=== PATIENT | female | born 1995 | race Caucasian/White ===

== ENCOUNTER 2016-11-27 17:07 | Emergency (ER) | payer MEDICARE, OTHER ==
--- NOTE | 2016-11-27 17:48 | ED Physician Documentation ---
Chest Pain - HISTORIAN Historian: patient - HPI Stated Complaint: chest pain Chief Complaint: Chest Pain Onset: hours (6-8 hours ago) Timing: sudden onset, gone now Duration: other (intermittent) Last known Well Date: 11/27/16 Last Known Well Time: 13:00 Last known Well Code/Unknown Code: Known Context: rest Severity: moderate Quality: aching, sharp Chest Pain Radiation: no radiation, other (substernal) Chest Pain Signs/Symptoms: denies: nausea, vomiting Worsened By: nothing Relieved By: nothing Further Comments: yes (Patient states that she had a single episode of anterior bilateral chest pain, she feels related to anxiety. Lasted for about 1 hour. No precipitating or modifying factors noted. bilateral anterior chest area.) - ROS CONST: none. denies: fever, chills GI/: none SKIN/ENDO: none - PAST HX SC risk factors: no pertinent history, other (no surgery) Lung disease: none Surgeries/Procedures: none Allergies/Adverse Reactions: Allergies Allergy/AdvReac Type Severity Reaction Status Date / Time No Known Allergies Allergy Verified 11/27/16 17:19 Home Medications: Ambulatory Orders Medication Instructions Recorded NK [NK] 11/27/16 - SOCIAL HX Smoking History: less than 1 pack/day (1/2 ppd) Alcohol Use: none Drug Use: none - FAMILY HX Family HX: none - VITAL SIGNS Vital Signs: Vital Signs Temp Pulse Resp BP Pulse Ox 117 H 16 138/97 100 11/27/16 17:15 11/27/16 17:15 11/27/16 17:15 11/27/16 17:15 - REVIEWED ASSESSMENTS Nursing Assessment Reviewed: Yes Vitals Reviewed: Yes Progress - Progress Progress: Patient was advised of elevated D dimer and of leukocytosis. Was advised on three different times that there is a possibility of a PE which if left untreated could kill her. Patient thinks chest pain was caused by anxiety and wished to leave AMA. Patient's straddle truck driver was in the room when I explained to her about the potential seriousness of having a PE. Patient continued to refuse further treatment and desired to leave AMA. Papers where explained to her and she signed them. Patient was advised to return if she had any further problems or symptoms.Encouraged to follow-up with her primary care provider. Chest Pain Physical Exam - EXAM General Appearance: no acute distress, alert EENT: eye inspection normal, ENT inspection normal, pharynx normal, no signs of dehydration Neck: nml inspection, no carotid bruit. No: lymphadenopathy, subcutaneous emphysema Respiratory: no resp. distress, chest non-tender, nml breath sounds, resp.distress CVS: reg. rate & rhythm, no murmur, no gallop, no friction rub, pulses full Abdomen: soft, no organomegaly, normal bowel sounds, no abdominal bruit, no distension, non-tender Skin: warm/dry, normal color Extremities: non-tender, normal range of motion, no evidence of injury Neuro: oriented X3, CN's nml as tested, motor nml, sensation nml, mood/affect nml, cognition normal Discharge Clincal Impression: Chest pain Qualifiers: Chest pain type: precordial pain Qualified Code(s): R07.2 - Precordial pain Referrals: Primary Doctor,No [Primary Care Provider] - 2 Days Additional Instructions: Chest pain may be related to a blood clot. It this is left untreated it could kill you. If you develop further hest pain, shortness of breath, cough of bloody phlegm return to the ED. Home Medications: Ambulatory Orders NK [NK] 11/27/16 Condition: Stable Disposition: 07 AGAINST MEDICAL ADVICE Decision to Admit: NO Date of Decison to Admit: 11/27/16 Decision Time: 18:59
[2016-11-27 18:09] LABS: BASOPHILS % 0.4 (0.0-1.5); EOSINOPHILS % 4.6 % (0.0-6.8); LYMPHOCYTES # 4.4 # k/uL (0.6-4.0); MONOCYTES # 0.8 # k/uL (0.0-0.9); MONOCYTES % 5.1 % (0.0-11.0); NEUTROPHILS # 9.6 # k/uL (1.4-7.7)
[2016-11-27 18:19] LABS: eGFR (African) > 60; eGFR (Non-African) > 60
--- NOTE | 2016-11-27 18:30 | Diagnostic Imaging Report ---
[facility] [id number] [facility] [id number] Report Submission Date: Nov 27, 2016 6:26:34 PM CARDIOLOGY MANAGER Patient Study Name: JENNIFER MONCADA Date: Nov 27, 2016 6:12:00 PM CARDIOLOGY MANAGER Modality Type: CR Gender: F Description: CHEST : 89 Institution: [facility] Physician: GUERRERO CHAVEZ Chest -two views CLINICAL HISTORY: Chest pain. FINDINGS: Examination of the chest in PA and lateral views with no prior film for comparison demonstrates the lungs to be clear. Cardiovascular and mediastinal silhouettes are within normal limits. Bony thorax is intact. IMPRESSION: Negative chest. Electronically signed on Nov 27, 2016 6:26:34 PM CARDIOLOGY MANAGER by: Jassi TELLO
[2016-11-27 20:25] VITALS: BP 113/74
== END 2016-11-27 19:20 | disposition left against medical advice (07) ==
LOC: ED 17:07
DX: R07.2 Precordial pain (principal)
CPT/HCPCS: 71020; 80053; 81025; 85025; 85379; 99283; S1016